=== PATIENT | male | born 1985 | race Caucasian/White ===

== ENCOUNTER 2022-06-18 22:11 | Inpatient (IN) | payer MEDICAID ==
[~2022-06-18] VITALS: Ht 175.3 cm; Wt 71.1 kg
[2022-06-18 22:59] LABS: HEMATOCRIT 39.4 % (42.0-52.0); MEAN CORPUSCULAR VOLUME 87.9 fl (80.0-96.0); PLATELET COUNT, AUTOMATED 252 10^3/uL (150-450); RED BLOOD COUNT 4.48 10^6/uL (4.30-6.10); WHITE BLOOD COUNT 8.5 10^3/uL (4.0-10.0)
[2022-06-18 23:25] LABS: AMPHETAMINES LEVEL URINE NEGATIVE (NEGATIVE); BARBITURATES URINE NEGATIVE (NEGATIVE); BENZODIAZEPINES URINE NEGATIVE (NEGATIVE); COCAINE METABOLITE URINE NEGATIVE (NEGATIVE)
[2022-06-18 23:26] LABS: CANNABINOIDS URINE NEGATIVE (NEGATIVE); METHADONE URINE NEGATIVE (NEGATIVE); OPIATES URINE NEGATIVE (NEGATIVE); PHENCYCLIDINE URINE NEGATIVE (NEGATIVE)
[2022-06-18 23:27] LABS: ETHYL ALCOHOL (ETHANOL) 0.006 % (0.000-0.010)
[2022-06-18 23:28] LABS: ACETAMINOPHEN LEVEL < 2.0 UG/ML (10.0-20.0)
[2022-06-18 23:29] LABS: SALICYLATE LEVEL < 3.0 MG/DL (<30)
[2022-06-18 23:30] LABS: ALBUMIN 4.7 G/DL (3.2-5.2); ALKALINE PHOSPHATASE 73 U/L (46-116); ALT/SGPT 36 U/L (7.0-40); AST/SGOT 32 U/L (<34); BILIRUBIN,DIRECT 0.3 MG/DL (<0.4); BILIRUBIN,TOTAL 0.8 MG/DL (0.3-1.2); BLOOD UREA NITROGEN 15 MG/DL (9-23); CALCIUM LEVEL 9.5 MG/DL (8.5-10.1); CARBON DIOXIDE LEVEL 27 MMOL/L (20-31); CHLORIDE LEVEL 104 MMOL/L (98-107); CREATININE FOR GFR 0.84 MG/DL (0.70-1.30); GLOMERULAR FILTRATION RATE > 60.0 (>60); GLUCOSE, FASTING 83 MG/DL (60-100); POTASSIUM SERUM 3.5 MMOL/L (3.5-5.1); SODIUM LEVEL 140 MMOL/L (136-145); TOTAL PROTEIN 7.2 G/DL (5.7-8.2)
[2022-06-18 23:32] LABS: THYROID STIMULATING HORMONE 4.371 uIU/ML (0.55-4.78)
[2022-06-19] MEDS ORDERED: ACETAMINOPHEN TAB 650MG DOSE (2X325MG) PO PRN (03:00)
[2022-06-19] MEDS ORDERED: MOM 30ML SUSPENSION UDC PO PRN (03:00)
[2022-06-19] MEDS ORDERED: MAALOX 30 ML SUSP *UDC PO PRN (03:00)
[2022-06-19 05:27] VITALS: BP 127/71
[2022-06-19] MEDS ORDERED: LAMI25TA3 PO (08:09)
[2022-06-19] MEDS ORDERED: HYDR-3363 PO (08:09)
[2022-06-19] MEDS ORDERED: LAMO-30 PO (08:09)
[2022-06-19] MEDS ORDERED: BUSP5TA PO (08:09)
[2022-06-19] MEDS ORDERED: LAMO50TA PO (08:09)
[2022-06-19] MEDS ORDERED: FLUO20CA22 PO (08:10)
[2022-06-19] MEDS ORDERED: HOME MED LIST COMPLETE! XX SCH (08:10)
[2022-06-19] MEDS: SERTRALINE HCL 50 MG TAB PO SCH (08:59)
[2022-06-19] MEDS: lamoTRIgine 25MG TAB PO SCH (12:47)
[2022-06-19 18:53] VITALS: BP 141/78
[2022-06-19] MEDS ORDERED: PALIPERIDONE 3MG ER TAB (INVEGA) PO SCH (21:00)
[2022-06-19] MEDS: ARIPiprazole 2 MG TAB PO SCH (21:15)
[2022-06-19] MEDS: traZODone 50 MG TAB PO PRN (21:15)
[2022-06-20 05:59] VITALS: BP 141/64
[2022-06-20 06:00] VITALS: BP 141/64
[2022-06-20 07:40] LABS: CHOLESTEROL RISK RATIO 2.11 (<5); HDL CHOLESTEROL 54.4 MG/DL (>40); LDL CHOLESTEROL 46.4 MG/DL (<100); NON-HDL-C 60.6 MG/DL
[2022-06-20] MEDS: lamoTRIgine 25MG TAB PO SCH (09:20)
[2022-06-20] MEDS: SERTRALINE HCL 50 MG TAB PO SCH (09:20)
[2022-06-20 16:13] VITALS: BP 124/63
[2022-06-20] MEDS: traZODone 50 MG TAB PO PRN (22:08)
[2022-06-20] MEDS: ARIPiprazole 2 MG TAB PO SCH (22:08)
[2022-06-21 06:20] VITALS: BP 120/56
[2022-06-21] MEDS: SERTRALINE HCL 50 MG TAB PO SCH (08:11)
[2022-06-21] MEDS: lamoTRIgine 25MG TAB PO SCH (08:12)
[2022-06-21] MEDS: OLANZapine ORAL DISINTEGRATING TAB 5MG PO PRN (15:18)
[2022-06-21 16:29] VITALS: BP 107/59
[2022-06-21] MEDS: traZODone 50 MG TAB PO PRN (21:48)
[2022-06-21] MEDS: ARIPiprazole 2 MG TAB PO SCH (21:48)
[2022-06-22 06:48] VITALS: BP 133/67
[2022-06-22] MEDS: SERTRALINE HCL 50 MG TAB PO SCH (09:02)
[2022-06-22] MEDS: lamoTRIgine 25MG TAB PO SCH (09:02)
[2022-06-22 18:37] VITALS: BP 131/78
[2022-06-22] MEDS: traZODone 50 MG TAB PO PRN (21:07)
[2022-06-22] MEDS: ARIPiprazole 2 MG TAB PO SCH (21:08)
[2022-06-23 05:55] VITALS: BP 122/65
[2022-06-23] MEDS: SERTRALINE HCL 50 MG TAB PO SCH (09:48)
[2022-06-23] MEDS: lamoTRIgine 25MG TAB PO SCH (09:48)
[2022-06-23 18:41] VITALS: BP 147/70
[2022-06-23] MEDS: ARIPiprazole 2 MG TAB PO SCH (20:05)
[2022-06-23] MEDS: traZODone 50 MG TAB PO PRN (20:05)
[2022-06-23] MEDS: OLANZapine ORAL DISINTEGRATING TAB 5MG PO PRN (23:26)
[2022-06-24 06:19] VITALS: BP 123/56
[2022-06-24] MEDS: SERTRALINE HCL 50 MG TAB PO SCH (08:25)
[2022-06-24] MEDS: lamoTRIgine 25MG TAB PO SCH (08:25)
[2022-06-24 18:52] VITALS: BP 152/83
[2022-06-24] MEDS: traZODone 50 MG TAB PO PRN (20:48)
[2022-06-25 06:40] VITALS: BP 121/56
[2022-06-25] MEDS: SERTRALINE 100 MG TAB PO SCH (09:38)
[2022-06-25] MEDS: lamoTRIgine 25MG TAB PO SCH (09:38)
[2022-06-25] MEDS: OLANZapine ORAL DISINTEGRATING TAB 5MG PO PRN (12:30)
[2022-06-25 18:59] VITALS: BP 120/78
[2022-06-25] MEDS: traZODone 50 MG TAB PO PRN (20:15)
[2022-06-26 06:52] VITALS: BP 119/60
[2022-06-26] MEDS: lamoTRIgine 25MG TAB PO SCH (09:05)
[2022-06-26] MEDS: SERTRALINE 100 MG TAB PO SCH (09:05)
[2022-06-26] MEDS ORDERED: TRAZ-252 PO (09:39)
[2022-06-26] MEDS ORDERED: ABIL1TAB11 PO (09:39)
[2022-06-26] MEDS ORDERED: LAMI25TA PO (09:39)
[2022-06-26] MEDS ORDERED: ZOLO100T PO (09:39)
[2022-06-26] MEDS ORDERED: ZYPR2.5T2 PO (12:04)
== END 2022-06-26 13:04 | disposition home or self-care (01) | DRG 751 ==
LOC: M ED 22:11 → M ED INP 06-19 02:58 → M PSY 06-19 04:14
PROVIDERS: ADMIT Psychiatry & Neurology Psychiatry; ATTEND Student in an Organized Health Care Education/Training Program
DX: F32.1 Major depressive disorder, single episode, moderate (principal); R45.851 Suicidal ideations; F60.3 Borderline personality disorder; F43.20 Adjustment disorder, unspecified; F60.89 Other specific personality disorders; F60.7 Dependent personality disorder; F44.9 Dissociative and conversion disorder, unspecified; Z79.899 Other long term (current) drug therapy; Z63.0 Problems in relationship with spouse or partner